=== PATIENT | male | born 1965 | race Caucasian/White ===

== ENCOUNTER 2018-02-05 19:13 | Emergency (ER) | payer OTHER ==
[2018-02-05 19:24] VITALS: BP 129/84; PULSE 100; RESP 18; TEMP 98.2
[2018-02-05] MEDS ORDERED: CYCLOBENZAPRINE 10MG STARTER 3 TAB BTL PO STA (19:51)
--- NOTE | 2018-02-05 19:53 | ED ---
Recheck HPI - General Chief Complaint: Recheck/Abnormal Lab/Rx Stated Complaint: Arm numbness Time Seen by Provider: 02/05/18 19:32 Source: patient, RN notes reviewed, old records reviewed Mode of arrival: wheelchair Limitations: no limitations - History of Present Illness Initial Comments: This patient is a 53-year-old male presents emergency department today chief complaint of numbness and tingling in his hands and radiates on his back. He reports that he had a fall on December 17 of this year. He states that he hit his neck. He was evaluated at [facility] afterward had a CAT scan which she was told he had degenerative disc disease. Patient states he prescribed her some steroids and muscle relaxants at that time. He states that they did not seem to help very much. States is been going to the chiropractor and has had some to maybe minor improvement. He comes here today for further evaluation for the numbness and tingling. He states he has full range of motion full motor function. Denies any coldness in the extremities. Denies any chest pain shortness of breath, nausea vomiting or diaphoresis. - Related Data Home Medications Medication Instructions Recorded Confirmed Ibuprofen [Motrin Ib] 600 mg PO ONCE PRN 02/05/18 02/05/18 Previous Rx's Medication Instructions Recorded Cyclobenzaprine [Flexeril] 10 mg PO TID #15 tab 02/05/18 Dexamethasone 0.75 mg PO DAILY #12 tab 02/05/18 Ketorolac [Toradol] 10 mg PO BID #10 tab 02/05/18 Allergies Allergy/AdvReac Type Severity Reaction Status Date / Time No Known Allergies Allergy Verified 02/05/18 19:49 Review of Systems ROS Statement: Those systems with pertinent positive or pertinent negative responses have been documented in the HPI. ROS Other: All systems not noted in ROS Statement are negative. Past Medical History Past Medical History: No Reported History History of Any Multi-Drug Resistant Organisms: None Reported Past Surgical History: Orthopedic Surgery Past Psychological History: No Psychological Hx Reported Smoking Status: Current every day smoker Past Alcohol Use History: Occasional Past Drug Use History: None Reported General Exam - General Exam Comments Initial Comments: 53-year-old male. No distress. Limitations: no limitations General appearance: alert, in no apparent distress Head exam: Present: atraumatic, normocephalic, normal inspection Eye exam: Present: normal appearance, PERRL, EOMI. Absent: scleral icterus, conjunctival injection, periorbital swelling ENT exam: Present: normal exam, mucous membranes moist Neck exam: Present: normal inspection. Absent: tenderness, meningismus, lymphadenopathy Respiratory exam: Present: normal lung sounds bilaterally. Absent: respiratory distress, wheezes, rales, rhonchi, stridor Cardiovascular Exam: Present: regular rate, normal rhythm, normal heart sounds. Absent: systolic murmur, diastolic murmur, rubs, gallop, clicks GI/Abdominal exam: Present: soft, normal bowel sounds. Absent: distended, tenderness, guarding, rebound, rigid Extremities exam: Present: normal inspection, full ROM, normal capillary refill. Absent: tenderness, pedal edema, joint swelling, calf tenderness Back exam: Present: normal inspection Neurological exam: Present: alert, oriented X3, CN II-XII intact Psychiatric exam: Present: normal affect, normal mood Skin exam: Present: warm, dry, intact, normal color. Absent: rash Course Vital Signs 02/05/18 19:18 Temperature 98.2 F Pulse Rate 100 Respiratory 18 Rate Blood Pressure 129/84 O2 Sat by Pulse 95 Oximetry Medical Decision Making - Medical Decision Making 53-year-old male presents today with evaluation and was feeling down his arms. He states is been having the symptoms for the past 2 months. Vital signs are stable. It seems to be worse with reproduction of to now signed. Discussed with history of arthritis and previous CAT scan we don't need to do another CAT scan today has had no further falls. He agrees to this. I discussed I can give the patient left axis and steroids help with the symptoms. Discussed he needs follow-up with a system support specialist. Likely needing an MRI and further testing. Patient states it feels like his hands are just numbness and tingling at all times. He has no other complaints at this time. We'll give the patient started approximately 40 with his discharge. Disposition Clinical Impression: Paresthesias, Cervical arthritis Disposition: HOME SELF-CARE Condition: Good Instructions: Paresthesia (ED) Additional Instructions: Patient has a follow-up with Dr. Duffy system support specialist. Take the muscle x- rays and steroids as prescribed. Return to the emergency department if any alarming signs or symptoms occur. Prescriptions: Cyclobenzaprine [Flexeril] 10 mg PO TID #15 tab Dexamethasone 0.75 mg PO DAILY #12 tab Ketorolac [Toradol] 10 mg PO BID #10 tab Is patient prescribed a controlled substance at d/c from ED?: No If prescribed controlled substance>3 days was MAPS reviewed?: No When asked, does pt state using other controlled substances?: No Referrals: None,Stated [Primary Care Provider] - 1-2 days Kristie Duffy, [Doctor of Osteopathic Medicine] - 1-2 days Time of Disposition: 19:51
== END 2018-02-05 20:03 | disposition home or self-care (01) ==
LOC: EC 19:13
DX: M46.92 Unspecified inflammatory spondylopathy, cervical region (principal); R20.2 Paresthesia of skin; F17.200 Nicotine dependence, unspecified, uncomplicated
CPT/HCPCS: 99284

== ENCOUNTER 2020-01-08 01:19 | Emergency (ER) | payer OTHER ==
[2020-01-08] MEDS ORDERED: SODIUM CHLORIDE 0.9% 1,000 ML IV STA (01:28)
[2020-01-08 02:13] VITALS: RESP 16
[2020-01-08 02:19] LABS: Basophils # (A) 0.1 k/uL (0-0.2); Basophils % (A) 1 %; Eosinophils # (A) 0.2 k/uL (0-0.7); Eosinophils % (A) 3 %; HCT 46.5 % (39.0-53.0); HGB 15.2 gm/dL (13.0-17.5); Lymphocytes # (A) 1.5 k/uL (1.0-4.8); Lymphocytes % (A) 18 %; MCH 32.4 pg (25.0-35.0); MCHC 32.8 g/dL (31.0-37.0); MCV 98.8 fL (80.0-100.0); Mean Platelet Volume 7.4; Monocytes # (A) 0.4 k/uL (0-1.0); Monocytes % (A) 4 %; Neutrophils % (A) 72 %; Platelet Count 219 k/uL (150-450); RDW 12.3 % (11.5-15.5); WBC 8.3 k/uL (3.8-10.6)
[2020-01-08 02:30] LABS: ALT 17 U/L (4-49); AST 33 U/L (17-59); African American GFR (CKD) >90 (>60 ml/min/1.73 sqM); Albumin 4.6 g/dL (3.5-5.0); Alkaline Phosphatase 67 U/L (38-126); Anion Gap 15 mmol/L; Blood Urea Nitrogen 8 mg/dL (9-20); Calcium 8.5 mg/dL (8.4-10.2); Carbon Dioxide 20 mmol/L (22-30); Chloride 100 mmol/L (98-107); Creatine Kinase 127 U/L (55-170); Glucose 96 mg/dL (74-99); INR 0.9 (<1.2); Non-African American GFR(CKD) >90 (>60 ml/min/1.73 sqM); Partial Thromboplastin Time 23.5 sec (22.0-30.0); Potassium 4.2 mmol/L (3.5-5.1); Prothrombin Time 9.5 sec (9.0-12.0); Sodium 135 mmol/L (137-145); Total Bilirubin 0.3 mg/dL (0.2-1.3); Total Protein 7.6 g/dL (6.3-8.2)
--- NOTE | 2020-01-08 03:38 | ED ---
Weakness HPI - General Chief complaint: Weakness Stated complaint: weakness Time Seen by Provider: 01/08/20 01:27 Source: patient, EMS Mode of arrival: EMS - History of Present Illness Initial comments: Damián is a 54 -year-old male who presents the ER today for evaluation of gen eralized weakness. Patient reports he's been eating okay probably not drinking enough and just feeling kind of unwell throughout the day today. He reports that this evening he attempted to get up to use the restroom and was so weak he couldn't even stand at which time he decided to call EMS for transport. Patient denies any recent fevers chills nausea, vomiting, diarrhea. He reports a cough that been going on for a number of months which he attributes to smoking. He denies any unintentional weight loss or night sweats. - Related Data Home Medications Medication Instructions Recorded Confirmed Ibuprofen [Motrin Ib] 600 mg PO ONCE PRN 02/05/18 02/05/18 Previous Rx's Medication Instructions Recorded Cyclobenzaprine [Flexeril] 10 mg PO TID #15 tab 02/05/18 Dexamethasone 0.75 mg PO DAILY #12 tab 02/05/18 Ketorolac [Toradol] 10 mg PO BID #10 tab 02/05/18 Allergies Allergy/AdvReac Type Severity Reaction Status Date / Time No Known Allergies Allergy Verified 02/05/18 19:49 Review of Systems ROS Statement: Those systems with pertinent positive or pertinent negative responses have been documented in the HPI. ROS Other: All systems not noted in ROS Statement are negative. Past Medical History Past Medical History: No Reported History History of Any Multi-Drug Resistant Organisms: None Reported Past Surgical History: Orthopedic Surgery Past Psychological History: No Psychological Hx Reported Smoking Status: Current every day smoker Past Alcohol Use History: Occasional Past Drug Use History: None Reported General Exam - General Exam Comments Initial Comments: Physical Exam GENERAL: Patient is well-developed and well-nourished. Patient is nontoxic and well-hydrated and is in no distress. HENT: Normocephalic, Atraumatic. EYES: PERRL, EOMI PULMONARY: Unlabored respirations. CARDIOVASCULAR: RRR Warm and well perfused extremities ABDOMEN: Non-distended SKIN: No rashes or bruising : Deferred NEUROLOGIC: Alert and oriented Normal speech Normal gait MUSCULOSKELETAL: Moving all extremities with no apparent injury PSYCHIATRIC: No SI/HI Course Vital Signs 01/08/20 01/08/20 01/08/20 01:20 01:31 02:00 Temperature 97.2 F L Pulse Rate 80 81 Respiratory 18 16 16 Rate Blood Pressure 99/85 97/65 O2 Sat by Pulse 97 98 Oximetry 01/08/20 01/08/20 01/08/20 03:00 04:00 04:45 Temperature Pulse Rate 82 80 80 Respiratory 16 16 16 Rate Blood Pressure 112/71 95/54 123/82 O2 Sat by Pulse 96 97 Oximetry 01/08/20 05:53 Temperature 97.8 F Pulse Rate 82 Respiratory 16 Rate Blood Pressure 105/79 O2 Sat by Pulse 97 Oximetry EKG Findings - EKG Comments: EKG Findings:: EKG was obtained to complain of generalized weakness, EKG was obtained at 1:29 AM, rate is 77 rhythm is sinus at a rightward axis, normal intervals, WA 160, Curasol 4, QTC 445 there are no acute ST elevations or depressions no evidence of acute ischemia or infarction. This pattern is consistent with a pulmonary disease pattern. Medical Decision Making - Medical Decision Making Shunt was seen and evaluated, history is obtained from patient, patient's hypotension and generalized weakness were improving upon arrival patient no focal neurologic deficits or weaknesses Labs and IV fluids were ordered Labs resulted with no significant abnormalities Chest x-ray with no abnormalities Patient received a liter and a half of fluids, blood pressure improved is awake alert oriented comfortable with the plan for discharge home. - Lab Data Result diagrams: 01/08/20 02:06 01/08/20 02:06 Lab Results 01/08/20 01/08/20 01/08/20 Range/Units 02:06 02:06 02:06 WBC 8.3 (3.8-10.6) k/uL RBC 4.70 (4.30-5.90) m/uL Hgb 15.2 (13.0-17.5) gm/dL Hct 46.5 (39.0-53.0) % MCV 98.8 (80.0-100.0) fL MCH 32.4 (25.0-35.0) pg MCHC 32.8 (31.0-37.0) g/dL RDW 12.3 (11.5-15.5) % Plt Count 219 (150-450) k/uL Neutrophils % 72 % Lymphocytes % 18 % Monocytes % 4 % Eosinophils % 3 % Basophils % 1 % Neutrophils # 6.0 (1.3-7.7) k/uL Lymphocytes # 1.5 (1.0-4.8) k/uL Monocytes # 0.4 (0-1.0) k/uL Eosinophils # 0.2 (0-0.7) k/uL Basophils # 0.1 (0-0.2) k/uL PT 9.5 (9.0-12.0) sec INR 0.9 (<1.2) APTT 23.5 (22.0-30.0) sec Sodium 135 L (137-145) mmol/L Potassium 4.2 (3.5-5.1) mmol/L Chloride 100 (98-107) mmol/L Carbon Dioxide 20 L (22-30) mmol/L Anion Gap 15 mmol/L BUN 8 L (9-20) mg/dL Creatinine 0.75 (0.66-1.25) mg/dL Est GFR (CKD-EPI)AfAm >90 (>60 ml/min/1.73 sqM) Est GFR (CKD-EPI)NonAf >90 (>60 ml/min/1.73 sqM) Glucose 96 (74-99) mg/dL Calcium 8.5 (8.4-10.2) mg/dL Magnesium 2.0 (1.6-2.3) mg/dL Total Bilirubin 0.3 (0.2-1.3) mg/dL AST 33 (17-59) U/L ALT 17 (4-49) U/L Alkaline Phosphatase 67 (38-126) U/L Creatine Kinase 127 (55-170) U/L Troponin I (0.000-0.034) ng/mL Total Protein 7.6 (6.3-8.2) g/dL Albumin 4.6 (3.5-5.0) g/dL TSH 1.870 (0.465-4.680) mIU/L Urine Color Urine Appearance (Clear) Urine pH (5.0-8.0) Ur Specific [place] (1.001-1.035) Urine Protein (Negative) Urine Glucose (UA) (Negative) Urine Ketones (Negative) Urine Blood (Negative) Urine Nitrite (Negative) Urine Bilirubin (Negative) Urine Urobilinogen (<2.0) mg/dL Ur Leukocyte Esterase (Negative) 01/08/20 01/08/20 Range/Units 02:06 04:14 WBC (3.8-10.6) k/uL RBC (4.30-5.90) m/uL Hgb (13.0-17.5) gm/dL Hct (39.0-53.0) % MCV (80.0-100.0) fL MCH (25.0-35.0) pg MCHC (31.0-37.0) g/dL RDW (11.5-15.5) % Plt Count (150-450) k/uL Neutrophils % % Lymphocytes % % Monocytes % % Eosinophils % % Basophils % % Neutrophils # (1.3-7.7) k/uL Lymphocytes # (1.0-4.8) k/uL Monocytes # (0-1.0) k/uL Eosinophils # (0-0.7) k/uL Basophils # (0-0.2) k/uL PT (9.0-12.0) sec INR (<1.2) APTT (22.0-30.0) sec Sodium (137-145) mmol/L Potassium (3.5-5.1) mmol/L Chloride (98-107) mmol/L Carbon Dioxide (22-30) mmol/L Anion Gap mmol/L BUN (9-20) mg/dL Creatinine (0.66-1.25) mg/dL Est GFR (CKD-EPI)AfAm (>60 ml/min/1.73 sqM) Est GFR (CKD-EPI)NonAf (>60 ml/min/1.73 sqM) Glucose (74-99) mg/dL Calcium (8.4-10.2) mg/dL Magnesium (1.6-2.3) mg/dL Total Bilirubin (0.2-1.3) mg/dL AST (17-59) U/L ALT (4-49) U/L Alkaline Phosphatase (38-126) U/L Creatine Kinase (55-170) U/L Troponin I <0.012 (0.000-0.034) ng/mL Total Protein (6.3-8.2) g/dL Albumin (3.5-5.0) g/dL TSH (0.465-4.680) mIU/L Urine Color Colorless Urine Appearance Clear (Clear) Urine pH 5.0 (5.0-8.0) Ur Specific [place] 1.001 (1.001-1.035) Urine Protein Negative (Negative) Urine Glucose (UA) Negative (Negative) Urine Ketones Negative (Negative) Urine Blood Negative (Negative) Urine Nitrite Negative (Negative) Urine Bilirubin Negative (Negative) Urine Urobilinogen <2.0 (<2.0) mg/dL Ur Leukocyte Esterase Negative (Negative) Disposition Clinical Impression: Hypotension, Generalized weakness Disposition: HOME SELF-CARE Condition: Stable Additional Instructions: Make sure you are drinking plenty of fluids throughout the day, be careful when you move from a laying to sitting or sitting to a standing position. If he feels lightheaded relax for up to 1 minute before standing. Follow-up with your primary care physician in the next week for reevaluation Return to ER if you have any worsening weakness develop any new or concerning symptoms Is patient prescribed a controlled substance at d/c from ED?: No Referrals: None,Stated [Primary Care Provider] - 1-2 days
[2020-01-08 04:21] LABS: Appearance,Urine Clear (Clear); Bilirubin,Urine Negative (Negative); Blood,Urine Negative (Negative); Color,Urine Colorless; Glucose,Urine (UA) Negative (Negative); Ketones,Urine Negative (Negative); Leukocyte Esterase,Urine Negative (Negative); Nitrite,Urine Negative (Negative); Protein,Urine Negative (Negative); Specific Gravity,Urine 1.001 (1.001-1.035); Urobilinogen,Urine <2.0 mg/dL (<2.0)
--- NOTE | 2020-01-08 04:31 | XR ---
EXAMINATION TYPE: XR chest 2V DATE OF EXAM: 01/08/2020 COMPARISON: 10/05/2010 HISTORY: Cough TECHNIQUE: FINDINGS: Heart and mediastinum are normal. Lungs are clear. Diaphragm is normal. Bony thorax appears normal. IMPRESSION: Normal chest. No change.
[2020-01-08 06:01] VITALS: BP 105/79; PULSE 82; TEMP 97.8
== END 2020-01-08 06:05 | disposition home or self-care (01) ==
LOC: EC 01:19
DX: F17.200 Nicotine dependence, unspecified, uncomplicated (principal); I95.9 Hypotension, unspecified; R53.1 Weakness; R05 Cough
CPT/HCPCS: 36415; 71046; 80053; 81003; 82550; 83735; 84443; 84484; 85025; 85610; 85730; 93005; 96360; 99285

== ENCOUNTER 2020-04-17 03:40 | Emergency (ER) | payer OTHER ==
[2020-04-17 03:46] VITALS: RESP 18
[2020-04-17] MEDS ORDERED: ORPHENADRINE 30 MG/ML 2 ML VIAL IM STA (03:52)
[2020-04-17] MEDS ORDERED: KETOROLAC 60 MG/2 ML VIAL IM STA (03:52)
[2020-04-17] MEDS ORDERED: HYDROmorphone 0.5 MG/0.5 ML SYRINGE IM STA (05:02)
--- NOTE | 2020-04-17 06:01 | ED ---
Back Pain HPI - General Chief Complaint: Back Pain/Injury Stated Complaint: Back Pain Time Seen by Provider: 04/17/20 03:50 Source: EMS Limitations: no limitations - History of Present Illness Initial Comments: This patient is a 55-year-old man who presents to be evaluated for an exacerbation of chronic back pain. Patient states that he had been diagnosed with a compression fracture a few months ago, at [facility]. He had been transferred to [facility] in [place] where he was told he probably should have what sounds like a kyphoplasty procedure. He states that they had wanted to inject some bone cement but the patient decided against this. He states he was put through a course of pain management, and then subsequently had run out of pain medication. 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 The patient is denying any red flag symptoms, including no saddle anesthesia, change in bladder or bowel function, weakness to the legs. No fever or chills. Patient states that the main issue is that he has been having some muscle spasms tonight in addition to the chronic pain. He indicates the muscle spasms in the paraspinal muscles MD Complaint: back pain -: week(s) Similar Symptoms Previously: Yes Place: home Radiation: none Severity: severe Quality: aching, other (Spasms) Consistency: constant Improves With: none Worsens With: none Associated Symptoms: denies other symptoms - Related Data Home Medications Medication Instructions Recorded Confirmed Ibuprofen [Motrin Ib] 600 mg PO ONCE PRN 02/05/18 02/05/18 Previous Rx's Medication Instructions Recorded Cyclobenzaprine [Flexeril] 10 mg PO TID #15 tab 02/05/18 Dexamethasone 0.75 mg PO DAILY #12 tab 02/05/18 Ketorolac [Toradol] 10 mg PO BID #10 tab 02/05/18 Hydrocodone/Acetaminophen [[place] 1 each PO Q6HR PRN #20 tab 04/17/20 5-325] Methocarbamol [Robaxin-750] 750 mg PO TID PRN #30 tablet 04/17/20 Allergies Allergy/AdvReac Type Severity Reaction Status Date / Time No Known Allergies Allergy Verified 04/17/20 03:46 Review of Systems ROS Statement: Those systems with pertinent positive or pertinent negative responses have been documented in the HPI. ROS Other: All systems not noted in ROS Statement are negative. Constitutional: Denies: fever, chills, weakness Respiratory: Denies: cough, dyspnea Cardiovascular: Denies: chest pain, palpitations, edema Gastrointestinal: Denies: abdominal pain, vomiting, diarrhea, constipation Genitourinary: Denies: dysuria, frequency, hematuria, testicular pain Musculoskeletal: Reports: as per HPI, back pain Skin: Denies: rash Neurological: Denies: headache, weakness, numbness, paresthesias Past Medical History Past Medical History: No Reported History History of Any Multi-Drug Resistant Organisms: None Reported Past Surgical History: Orthopedic Surgery Past Psychological History: No Psychological Hx Reported Smoking Status: Current every day smoker Past Alcohol Use History: Occasional Past Drug Use History: Marijuana General Exam Limitations: no limitations General appearance: alert, in no apparent distress Head exam: Present: atraumatic, normocephalic Neck exam: Present: full ROM. Absent: tenderness Respiratory exam: Present: normal lung sounds bilaterally. Absent: respiratory distress, wheezes, rales, rhonchi, stridor Cardiovascular Exam: Present: regular rate, normal rhythm, normal heart sounds. Absent: systolic murmur, diastolic murmur, rubs, gallop GI/Abdominal exam: Present: soft. Absent: distended, tenderness, guarding, rebound, pulsatile mass Extremities exam: Present: normal inspection, normal capillary refill. Absent: pedal edema, calf tenderness Back exam: Present: normal inspection, paraspinal tenderness. Absent: CVA tenderness (R), CVA tenderness (L), vertebral tenderness Neurological exam: Present: alert, reflexes normal. Absent: motor sensory deficit Skin exam: Present: warm, dry, intact, normal color. Absent: rash Course Vital Signs 04/17/20 04/17/20 03:44 06:26 Temperature 98.1 F 97.7 F Pulse Rate 96 90 Respiratory 18 18 Rate Blood Pressure 128/101 120/76 O2 Sat by Pulse 95 99 Oximetry Medical Decision Making - Medical Decision Making The patient stated that his spasms had resolved and his pain was much better. I he was ambulating around the department is walking without any difficulty. Patient encouraged to follow with back specialist and reconsider the kyphoplasty. Also must establish with a pain management physician in the area. Disposition Clinical Impression: Back pain Disposition: HOME SELF-CARE Condition: Good Instructions (If sedation given, give patient instructions): Chronic Back Pain (DC) Prescriptions: Hydrocodone/Acetaminophen [[place] 5-325] 1 each PO Q6HR PRN #20 tab PRN Reason: Pain Methocarbamol [Robaxin-750] 750 mg PO TID PRN #30 tablet PRN Reason: pain Is patient prescribed a controlled substance at d/c from ED?: Yes When asked, does pt state using other controlled substances?: No If prescribed controlled substance>3 days was MAPS reviewed?: Prescribed <3 Days If opioid is for acute pain is fill amount 7 days or less?: Yes If Rx opioid, was Start Talking consent form obtained?: Yes Referrals: None,Stated [Primary Care Provider] - 1-2 days Kristie Duffy, [Doctor of Osteopathic Medicine] - 1-2 days
[2020-04-17 06:30] VITALS: BP 120/76; PULSE 90; TEMP 97.7
== END 2020-04-17 06:30 | disposition home or self-care (01) ==
LOC: EC 03:40
DX: M54.9 Dorsalgia, unspecified (principal); F17.200 Nicotine dependence, unspecified, uncomplicated
CPT/HCPCS: 99283; 96372 ×3; J2360; J1885; J1170

== ENCOUNTER 2020-09-18 01:17 | Emergency (ER) | payer OTHER ==
[2020-09-18 01:25] VITALS: BP 121/93; PULSE 92; RESP 20; TEMP 97
[2020-09-18] MEDS ORDERED: HYDROcodone/APAP 7.5-325MG 1 EACH TAB PO ONE (01:35)
--- NOTE | 2020-09-18 01:49 | ED ---
Back Pain HPI - General Chief Complaint: Back Pain/Injury Stated Complaint: Back Pain Time Seen by Provider: 09/18/20 01:22 Source: EMS Limitations: no limitations - History of Present Illness Initial Comments: 55yo male presenting for low back pain. pt states he has chronic back pain and ran out of pain medications. patient states that he has struggled with his back since January, he states he was supposed to have cement put in his back but is not totally sure what the procedure was called. states he has compression fracture of the back from previous injuries. pt states he ran out of his pain medications and went to [facility] today he states they wanted to transfer me but i didnt wnat to and went home. pt states that since january he has had some tingling of the leg bilaterally, and at times pain that radiates down the leg. Pt denies urinary retention/incontinence, loss of sensation of LE or weakness of the LE. Patient states he is able to walk. pt state she came to this facility for "muscle relaxer things". patient denies additional complaints. - Related Data Home Medications Medication Instructions Recorded Confirmed Ibuprofen [Motrin Ib] 600 mg PO ONCE PRN 02/05/18 02/05/18 Previous Rx's Medication Instructions Recorded Cyclobenzaprine [Flexeril] 10 mg PO TID #15 tab 02/05/18 Ketorolac [Toradol] 10 mg PO BID #10 tab 02/05/18 dexAMETHasone [Dexamethasone] 0.75 mg PO DAILY #12 tab 02/05/18 Hydrocodone/Acetaminophen [[place] 1 each PO Q6HR PRN #20 tab 04/17/20 5-325] Methocarbamol [Robaxin-750] 750 mg PO TID PRN #30 tablet 04/17/20 Allergies Allergy/AdvReac Type Severity Reaction Status Date / Time No Known Allergies Allergy Verified 09/18/20 01:25 Review of Systems ROS Statement: Those systems with pertinent positive or pertinent negative responses have been documented in the HPI. ROS Other: All systems not noted in ROS Statement are negative. Past Medical History Past Medical History: No Reported History History of Any Multi-Drug Resistant Organisms: None Reported Past Surgical History: Orthopedic Surgery Past Psychological History: No Psychological Hx Reported Smoking Status: Current every day smoker Past Alcohol Use History: Occasional Past Drug Use History: Marijuana General Exam - General Exam Comments Initial Comments: General: The patient is awake and alert, in no distress Eye: +3mm pupils are equal, round and reactive to light, extra-ocular movements are intact. No nystagmus. There is normal conjunctiva bilaterally. No signs of icterus. Ears, nose, mouth and throat: There are moist mucous membranes and no oral lesions. Neck: The neck is supple, there is no tenderness or JVD. Cardiovascular: There is a regular rate and rhythm. No murmur, rub or gallop is appreciated. Respiratory: Lungs are clear to auscultation, respirations are non-labored, breath sounds are equal. No wheezes, stridor, rales, or rhonchi. Gastrointestinal: Soft, non-distended, non-tender abdomen without masses or organomegaly noted. There is no rebound or guarding present. : normal rectal tone--normal sensation of perineum Musculoskeletal: Normal lumbar inspection with paraspinal tenderness to palpat ion Normal ROM of the LE however SLR + b/l. Strength 5/5 of the LE b/l equal. Sensation intact of the LE b/l equally. Radial pulses equal bilaterally 2+. +2/5 DTR of patella/achilles. No hypo nor hyperreflexia. No myoclonus fasciculations. Patient is able to weight-bear and ambulate Neurological: A&O x 3. CN II-XII intact grossly, There are no obvious motor or sensory deficits. Coordination appears grossly intact. Speech is normal. Skin: Skin is warm and dry and no rashes or lesions are noted. Psychiatric: Cooperative, appropriate mood & affect, normal judgment. Limitations: no limitations Course Vital Signs 09/18/20 01:19 Temperature 97 F L Pulse Rate 92 Respiratory 20 Rate Blood Pressure 121/93 O2 Sat by Pulse 99 Oximetry - Reevaluation(s) Reevaluation #1: bladder scan 434 before void, voided ~300ml however i interrupted patient as i did not know he was providing sample 09/18/20 02:26 Medical Decision Making - Medical Decision Making pt presenting for cc low back pain, no clinical history nor PE findings overtly concerning for cauda equina. pt was interrupted mid stream when providing sample. pre void 434. patient presenting for medications. pt givne flexeril with orthopedic spine f/u. Dr tatum is agreeable to care plan and discharge. Disposition Clinical Impression: Low back pain Disposition: HOME SELF-CARE Condition: Good Instructions (If sedation given, give patient instructions): Pain Management (ED), Chronic Pain (ED) Additional Instructions: Please use medication as discussed. Please follow-up with family doctor in the next 2 day, recommend orthopedic spine evaluation. Please return to emergency room if the symptoms increase or worsen or for any other concerns. Is patient prescribed a controlled substance at d/c from ED?: No Referrals: None,Stated [Primary Care Provider] - 1-2 days Neftaly Vargas DO [Doctor of Osteopathic Medicine] - 1-2 days Time of Disposition: 01:59
[2020-09-18] MEDS ORDERED: CYCLOBENZAPRINE 10MG STARTER 3 TAB BTL PO STA (01:58)
== END 2020-09-18 02:25 | disposition home or self-care (01) ==
LOC: EC 01:17
DX: M54.5 Low back pain (principal); G89.29 Other chronic pain; F17.200 Nicotine dependence, unspecified, uncomplicated
CPT/HCPCS: 51798; 99284